=== PATIENT | male | born 1990 ===

== ENCOUNTER 2017-06-06 20:57 | Emergency (ER) | payer SELFPAY ==
[2017-06-06 21:03] VITALS: BP 165/95; PULSE 65; RESP 16; TEMP 98.2; O2SAT 100
--- NOTE | 2017-06-06 22:50 | ED PDOC ---
HPI: Psych/Substance Abuse Time Seen by Provider: 06/06/17 21:06 Chief Complaint (Nursing): Psychiatric Evaluation Chief Complaint (Provider): depression History Per: Patient History/Exam Limitations: no limitations Onset/Duration Of Symptoms: Days (1) Current Symptoms Are (Timing): Still Present Additional Complaint(s): Gradual onset feeling of depression causing him to seclude himself from his family since last night. Thoughts of suicide but not currently. No hallucinations or homicidal ideations. History of depression and hospitalization for psych illness. Denies alcohol or drug use today, but drank small amount yesterday. No PMD. Past Medical History Reviewed: Vital Signs Vital Signs: Last Vital Signs Temp 98.2 F 06/06/17 21:00 Pulse 65 06/06/17 21:00 Resp 16 06/06/17 21:00 BP 165/95 H 06/06/17 21:00 Pulse Ox 100 06/06/17 21:00 - Medical History Other PMH: Psoriasis - Surgical History Surgical History: No Surg Hx - Family History Family History: States: Unknown Family Hx - Social History Current smoker - smoking cessation education provided: No Alcohol: Occasional Drugs: Cannabis - Home Medications Home Medications: Ambulatory Orders Medication Instructions Recorded No Known Home Med 03/09/16 - Allergies Allergies/Adverse Reactions: Allergies Allergy/AdvReac Type Severity Reaction Status Date / Time No Known Allergies Allergy Verified 11/11/15 10:48 Review of Systems ROS Statement: Except As Marked, All Systems Reviewed And Found Negative (and as per HPI) Psych: Positive for: Depression, Suicidal ideation Physical Exam - Reviewed Nursing Documentation Reviewed: Yes Vital Signs Reviewed: Yes - Physical Exam Appears: Positive for: Non-toxic, No Acute Distress Head Exam: Positive for: ATRAUMATIC, NORMOCEPHALIC Skin: Positive for: Warm, Dry Eye Exam: Positive for: EOMI, PERRL Neck: Positive for: Painless ROM, Supple Cardiovascular/Chest: Positive for: Regular Rate, Rhythm. Negative for: Murmur Respiratory: Positive for: Normal Breath Sounds. Negative for: Respiratory Distress Gastrointestinal/Abdominal: Positive for: Soft. Negative for: Tenderness Back: Positive for: Normal Inspection. Negative for: Decreased ROM Extremity: Positive for: Normal ROM. Negative for: Deformity Lymphatic: Negative for: Adenopathy Neurologic/Psych: Positive for: Alert, Mood/Affect (sad mood and normal affect) . Negative for: Oriented, Motor/Sensory Deficits - ECG O2 Sat by Pulse Oximetry: 100 (RA) Pulse Ox Interpretation: Normal Disposition - Patient ED Disposition Is Patient to be Admitted: Transfer of Care - Disposition Disposition: Transfer of Care Disposition Time: 00:00 Forms: [employer] (Norwegian) Patient Signed Over To: Paula Knutson Handoff Comments: pending crisis evaluation
--- NOTE | 2017-06-07 00:58 | ED PDOC ---
- ECG O2 Sat by Pulse Oximetry: 100 (RA) Medical Decision Making Medical Decision Making: Time: 00:00 --Patient is signed over to me by Dr. Key pending crisis evaluation. Time: 01:00 --Patient will be discharged as per Dr. Hays. Scribe Attestation: Documented by David Coffey acting as a scribe for Paula Knutson MD. Scribe Attestation: All medical record entries made by the Scribe were at my direction and personally dictated by me. I have reviewed the chart and agree that the record accurately reflects my personal performance of the history, physical exam, medical decision making, and the department course for this patient. I have also personally directed, reviewed, and agree with the discharge instructions and disposition. Disposition Counseled Patient/Family Regarding: Diagnosis, Need For Followup - Clinical Impression Clinical Impression: Anxiety - POA Present On Arrival: None - Disposition Disposition: Routine/Home Disposition Time: 01:00 Condition: IMPROVED Additional Instructions: follow up with your doctor return to the ED with any worsening or concerning symptoms Instructions: Anxiety (ED) Forms: [employer] ([place]anaian)
== END 2017-06-07 01:18 | disposition home or self-care (01) ==
LOC: H.ER 20:57
DX: F32.9 Major depressive disorder, single episode, unspecified (principal); F41.9 Anxiety disorder, unspecified